=== PATIENT | female | born 1990 | race Caucasian/White ===

== ENCOUNTER 2019-10-24 20:19 | Emergency (ER) | payer MEDICAID ==
[~2019-10-24] VITALS: Ht 152.4 cm; Wt 52.3 kg
[2019-10-24 20:22] VITALS: BP 135/83
[2019-10-24] MEDS ORDERED: AMOX500C2 PO (21:29)
[2019-10-24] MEDS ORDERED: CIPR10DR LEFT EAR (21:29)
== END 2019-10-24 21:40 | disposition home or self-care (01) ==
LOC: ER 20:19
DX: H61.22 Impacted cerumen, left ear (principal); G89.29 Other chronic pain; F12.90 Cannabis use, unspecified, uncomplicated; Z88.8 Allergy status to other drugs, medicaments and biological substances; Z79.2 Long term (current) use of antibiotics
CPT/HCPCS: 99283

== ENCOUNTER 2020-09-16 17:13 | Emergency (ER) | payer MEDICARE, MEDICAID ==
[~2020-09-16] VITALS: Ht 152.4 cm; Wt 52.3 kg
[2020-09-16 17:28] VITALS: BP 137/86
--- NOTE | 2020-09-16 18:53 | NUR ---
matty at bedside lavaging patients ears was able to flush out a wax plug the size of a steph, MATTY states" ear drums are clear and no anti-biotics.
== END 2020-09-16 19:10 | disposition home or self-care (01) ==
LOC: ER 17:13
DX: H61.23 Impacted cerumen, bilateral (principal); G89.29 Other chronic pain; F15.90 Other stimulant use, unspecified, uncomplicated; Z86.61 Personal history of infections of the central nervous system; Z88.8 Allergy status to other drugs, medicaments and biological substances
CPT/HCPCS: 69209; 99282

== ENCOUNTER 2020-11-23 17:05 | Emergency (ER) | payer MEDICARE, MEDICAID ==
[~2020-11-23] VITALS: Ht 154.9 cm; Wt 52.3 kg
[2020-11-23 17:13] VITALS: BP 145/91
[2020-11-23] MEDS ORDERED: DICL100G15 TOP (18:18)
== END 2020-11-23 18:33 | disposition home or self-care (01) ==
LOC: ER 17:07
DX: M94.0 Chondrocostal junction syndrome [Tietze] (principal); R07.89 Other chest pain; M25.512 Pain in left shoulder; G89.29 Other chronic pain; F12.90 Cannabis use, unspecified, uncomplicated; Z86.69 Personal history of other diseases of the nervous system and sense organs; Z88.8 Allergy status to other drugs, medicaments and biological substances; Z79.899 Other long term (current) drug therapy
CPT/HCPCS: 29105; 99282; 99283